=== PATIENT | female | born 1970 | race Caucasian/White ===

== ENCOUNTER 2016-09-12 18:36 | Emergency (ER) | payer BC ==
[2016-09-12] MEDS ORDERED: METHYLPREDNISOLONE PF 125MG/VIAL IVP ONE (19:21)
--- NOTE | 2016-09-12 19:27 | Emergency Department Record ---
History of Present Illness - General Chief complaint: ENT Stated complaint: SWELLING IN THROAT Time Seen by Provider: 09/12/16 19:08 Source: Patient Mode of Arrival: Ambulatory Limitations: No limitations - History of Present Illness Initial comments: pt has been having swelling in her r neck w difficulty swallowing all day. there is pain in the right anterior neck. she states initially it felt like a ' cramp' it has waxed and waned in intensity and and food seems to make it worse. MD complaint: Other Onset/Timin -: Hour(s) Location: Tongue Severity scale (1-10): 10 Quality: Sharp Consistency: Constant Improves with: Rest Worsens with: Eating, Swallowing Associated Symptoms: Pain with swallowing - Related Data Home Medications Medication Instructions Recorded Confirmed Last Taken Naproxen [Naprosyn] 500 mg PO BID 09/12/16 09/12/16 09/12/16 Naratriptan HCl [Amerge] 2.5 mg PO ASDIR 09/12/16 09/12/16 Unknown Sertraline HCl [Zoloft] 25 mg PO DAILY 09/12/16 09/12/16 09/12/16 Topiramate 100Mg Tablet 50 mg PO QD 09/12/16 09/12/16 09/12/16 [Topiramate] Previous Rx's Medication Instructions Recorded Levofloxacin [Levaquin] 500 mg PO DAILY #10 tablet 09/12/16 Allergies Allergy/AdvReac Type Severity Reaction Status Date / Time ceftriaxone [From Rocephin] Allergy ANAPHYLAXIS Verified 09/12/16 18:48 Penicillins Allergy ANAPHYLAXIS Verified 09/12/16 18:48 red dye Allergy ANAPHYLAXIS Verified 09/12/16 18:48 sulfamethoxazole Allergy SWELLING Verified 09/12/16 18:59 [From Bactrim] (GENERAL) trimethoprim [From Bactrim] Allergy SWELLING Verified 09/12/16 18:59 (GENERAL) Travel Screening - Travel/Exposure Within Last 30 Days Have you traveled within the last 30 days?: No - Travel/Exposure Within Last Year Have you traveled outside the [place] in the last year?: No - Additonal Travel Details Have you been exposed to anyone with a communicable illness?: No - Travel Symptoms Symptom Screening: None Review of Systems Reviewed: No additional complaints except as noted below Constitutional: Reports: As per HPI. Denies: Chills, Fever, Malaise, Night sweats, Weakness, Weight change Eyes: Reports: As per HPI. Denies: Eye discharge, Eye pain, Photophobia, Vision change ENT: Reports: As per HPI. Denies: Congestion, Dental pain, Ear pain, Epistaxis , Hearing loss, Throat pain Respiratory: Reports: As per HPI. Denies: Cough, Dyspnea, Hemoptysis, Stridor, Wheezes Cardiovascular: Reports: As per HPI. Denies: Arrhythmia, Chest pain, Dyspnea on exertion, Edema, Murmurs, Orthopnea, Palpitations, Paroxysmal nocturnal dyspnea, Rheumatic Fever, Syncope Endocrine: Reports: As per HPI. Denies: Fatigue, Heat or cold intolerance, Polydipsia, Polyuria Gastrointestinal: Reports: As per HPI. Denies: Abdominal pain, Constipation, Diarrhea, Hematemesis, Hematochezia, Melena, Nausea, Vomiting Genitourinary: Reports: As per HPI. Denies: Abnormal menses, Discharge, Dyspareunia, Dysuria, Frequency, Hematuria, Incontinence, Retention, Urgency Musculoskeletal: Reports: As per HPI. Denies: Arthralgia, Back pain, Gout, Joint swelling, Myalgia, Neck pain Skin: Reports: As per HPI. Denies: Bruising, Change in color, Change in hair/ nails, Lesions, Pruritus, Rash Neurological: Reports: As per HPI. Denies: Abnormal gait, Confusion, Headache, Numbness, Paresthesias, Seizure, Tingling, Tremors, Vertigo, Weakness Psychiatric: Reports: As per HPI. Denies: Anxiety, Auditory hallucinations, Depression, Homicidal thoughts, Suicidal thoughts, Visual hallucinations Hematological/Lymphatic: Reports: As per HPI. Denies: Anemia, Blood Clots, Easy bleeding, Easy bruising, Swollen glands Past Medical History - SOCIAL HISTORY Smoking Status: Never smoker Alcohol Use: None Drug Use: None - RESPIRATORY Hx Respiratory Disorders: Yes Hx Asthma: Yes - CARDIOVASCULAR Hx Cardio Disorders: Yes Hx Deep Vein Thrombosis: Yes Comment:: PAC - NEURO Hx Neuro Disorders: Yes Hx Headaches: Yes - GI Hx GI Disorders: No - Hx Genitourinary Disorders: No - ENDOCRINE Hx Endocrine Disorders: No - MUSCULOSKELETAL Hx Musculoskeletal Disorders: Yes Hx Arthritis: Yes - PSYCH Hx Psych Problems: Yes Hx Anxiety: Yes - HEMATOLOGY/ONCOLOGY Hx Hematology/Oncology Disorders: No Family Medical History Any Significant Family History?: No Family Hx Comment (NOT TO BE USED IN PLACE OF ITEMS BELOW): Mom thyroid Hx Depression: Mother Hx Resp Disorders: Father Hx Stroke: Father Physical Exam - General General Appearance: Alert, Oriented x3, Cooperative, Mild distress - Head Head exam: Normal inspection - Eye Eye exam: Normal appearance, PERRL, EOMI Pupils: Normal accommodation - ENT ENT exam: Normal exam, Mucous membranes moist, Normal external ear exam, Normal orophraynx, TM's normal bilaterally Ear exam: Normal external inspection. negative: External canal tenderness Nasal Exam: Normal inspection. negative: Discharge, Sinus tenderness Mouth exam: Normal external inspection, Tongue normal Teeth exam: Normal inspection. negative: Dental caries Throat exam: Normal inspection. negative: Tonsillar erythema, Tonsillar exudate - Neck Neck exam: Full ROM, Tenderness - Respiratory Respiratory exam: Normal lung sounds bilaterally. negative: Respiratory distress - Cardiovascular Cardiovascular Exam: Regular rate, Normal rhythm, Normal heart sounds - GI/Abdominal GI/Abdominal exam: Soft, Normal bowel sounds. negative: Tenderness - Rectal Rectal exam: Deferred - exam: Deferred - Extremities Extremities exam: Normal inspection, Full ROM, Normal capillary refill. negative: Tenderness - Back Back exam: Reports: Normal inspection, Full ROM. Denies: Muscle spasm, Rash noted, Tenderness - Neurological Neurological exam: Alert, CN II-XII intact, Normal gait, Oriented X3 - Psychiatric Psychiatric exam: Normal affect, Normal mood - Skin Skin exam: Dry, Intact, Normal color, Warm Course Vital Signs 09/12/16 18:39 Temperature 98.3 F Pulse Rate 83 Respiratory 20 Rate Blood Pressure 141/93 Pulse Ox 99 - Reevaluation(s) Reevaluation #1: 09/12/16 21:21 pt has done well. [address] read as enlarged submandibular gland, lymphadenitis, sinusitis and thyroid nodule Medical Decision Making - Lab Data Result diagrams: 09/12/16 19:41 09/12/16 19:41 Disposition Disposition: Discharge Clinical Impression: Lymphadenitis, Thyroid nodule Disposition: Home, Self-Care Condition: (1) Good Instructions: Sinusitis (ED), Adenitis (ED), Lymphadenopathy (ED), Thyroid Nodules (ED) Additional Instructions: follow up with family doctor. return sooner if worse. have further evaluation by ent if symptoms continue. have thyroid nodule evaluated further Prescriptions: Levofloxacin [Levaquin] 500 mg PO DAILY #10 tablet Forms: Patient Portal Access Quality - Quality Measures Quality Measures: Adult Sinusitis - Adult Sinusitis: CT Use Quality Measure: Measure #333: Adult Sinusitis Adult Sinusitis: CT for Acute Sinusitis: CT Ordered With Documented Reason [ G9348] Reason for Ordering CT: Other (ct ordered of neck for obstruction, sinusitis found incidentally) - Blood Pressure Screening Blood Pressure Classification: Hypertensive Reading Systolic Measurement: 141 Diastolic Measurement: 93 Screening for High Blood Pressure: < First Hypertensive BP, F/U Documented > [ G8950] First Hypertensive Follow-up Interventions: Follow-up with rescreen GT 1 day and LT 4 weeks.
[2016-09-12 19:50] LABS: BASO % 0.5 % (0-6); EOS % 2.5 % (0-6); GRAN % 45.7 % (47-80); HEMATOCRIT 37.5 % (35.0-47.0); HEMOGLOBIN 12.5 gm/dl (11.6-16.0); LYMPH % 42.9 % (16-45); MEAN CELL VOLUME 91.5 fl (81-97); MEAN CORPUSCULAR HEMOGLOBIN 30.5 pg (27-33); MEAN CORPUSCULAR HGB CONC 33.3 g/dl (32-36); MEAN PLATELET VOLUME 9.8 fl (7.4-10.4); MONO % 8.4 % (0-9); PLATELET COUNT 232 K/uL (130-400); RED CELL DISTRIBUTION WIDTH 13.3 % (11.5-14.5); WHITE BLOOD COUNT W/O DIFF 7.6 K/uL (4.2-12.2)
[2016-09-12 20:00] LABS: ANION GAP 10.3 (7-16); BLOOD UREA NITROGEN 22 mg/dL (7-17); CARBON DIOXIDE 24.7 mmol/L (22-30); CREATININE 0.9 mg/dL (0.52-1.04); EST GLOMERULAR FILTRATION RATE > 60 ml/min; GLUCOSE,RANDOM 82 mg/dL (70-110)
[2016-09-12 20:45] LABS: ERYTHROCYTE SEDIMENTATION RATE 7 mm/hr (0-20)
[2016-09-12] MEDS ORDERED: LEVOFLOXACIN 500 MG TABLET PO ONE (21:30)
--- NOTE | 2016-09-13 09:48 | CT SCAN REPORT ---
EXAM: CT OF THE NECK WITH CONTRAST HISTORY: RIGHT SIDE OF NECK SORE, SWELLING. TECHNIQUE: Axial CT scan of the neck was performed following the intravenous administration of 100 ml of Omnipaque 300 as the IV contrast. Small metallic BB 's were placed along the right side of the neck at the area the patient describes as being the area of pain and swelling. Comparison: None. FINDINGS: There is moderate opacification in the right maxillary sinus probably with an air fluid level. Some membrane thickening inferiorly in the sphenoid sinus. Elsewhere the visualized paranasal sinuses appear essentially clear. The visualized mastoids and middle ear cavities are clear aside from a single mastoid air cell posterolaterally on the right. The visualized orbits appear unremarkable. No parotid gland mass identified. No discreet submandibular gland mass seen on either side, but the right submandibular gland appears larger than the left with slight blurring of the tissue surrounding the right submandibular gland and clinical correlation as to right salivary gland infection suggested. There are some mildly prominent cervical nodes although no definite adenopathy identified. The right submandibular gland is in the region of the area of clinical concern as indicated by the BB's. There is a very small nodule in the left lobe of the thyroid only about 5 mm in size, and probably a small nodule along the posterior aspect of the right lobe of the thyroid about 7 mm in size. These are nonspecific although presumably small adenomas. The visualized lung apices appear clear. No apical pneumothorax evident. Degenerative change at the odontoid-anterior arch of C1 articulation and some narrowing of the fifth and sixth cervical interspaces with hypertrophic spurring. No prevertebral soft tissue swelling evident. The epiglottis is of normal size. No distention of the hypopharynx or narrowing of the subglottic airway evident. IMPRESSION: 1. ASYMMETRY IN THE SUBMANDIBULAR GLANDS WITH THE RIGHT APPEARING SOMEWHAT LARGER THAN THE LEFT AND ALSO WITH SLIGHT BLURRING OF THE PERIGLANDULAR ADIPOSE TISSUE SURROUNDING THE RIGHT SUBMANDIBULAR GLAND. CLINICAL CORRELATION TO INFECTION INVOLVING THE RIGHT SUBMANDIBULAR GLAND SUGGESTED. NO DISCREET ABSCESS IDENTIFIED. SOME MILDLY PROMINENT CERVICAL NODES, BUT NO SOILA ADENOPATHY EVIDENT. 2. AIR FLUID LEVEL RIGHT MAXILLARY SINUS AND SOME MEMBRANE THICKENING IN THE SPHENOID SINUS. 3. SINGLE SUBCENTIMETER THYROID NODULES BILATERALLY. 4. SOME DEGENERATIVE CHANGE IN THE CERVICAL SPINE. JOB NUMBER: [id number] [facility]
== END 2016-09-12 21:48 | disposition home or self-care (01) ==
LOC: ER 18:36
DX: K11.1 Hypertrophy of salivary gland (principal); E04.1 Nontoxic single thyroid nodule; I88.9 Nonspecific lymphadenitis, unspecified; J01.00 Acute maxillary sinusitis, unspecified
CPT/HCPCS: 99284 ×2; 96374; 85025; 85651; 80048; 87880; 84443; 70491; Q9967; J2930

== ENCOUNTER 2017-02-23 11:21 | Emergency (ER) | payer BC ==
[2017-02-23] MEDS ORDERED: ACETAMINOPHEN 500 MG TABLET PO ONE (12:09)
--- NOTE | 2017-02-23 12:11 | Emergency Department Record ---
History of Present Illness - General Chief Complaint: Cough Stated Complaint: ROBIN Time Seen by Provider: 02/23/17 11:58 Source: Patient Mode of Arrival: Ambulatory Limitations: No limitations - History of Present Illness Initial Comments: 46 yo female presents with cough, congestion, headaches, muscle aches and fatigue. She had had low grade fevers. She has vomited with coughing. No diarrhea. No rash. She reports low grade fevers. She did not have the influenza vaccine this year. MD Complaint: Cough, Fever, Nasal congestion Onset/Timin -: Days(s) Severity: Moderate Quality: Aching Consistency: Constant Improves With: Other (Rest) Worsens With: Other (coughing and activity) Associated Symptoms: Cough, Fever, Headache, Hoarseness, Myalgias, Nasal congestion, Nausea, Rhinorrhea, Sore throat, Vomiting (with cough) Treatments Prior to Arrival: Acetaminophen, Ibuprofen - Related Data Home Medications Medication Instructions Recorded Confirmed Last Taken Rivaroxaban [Xarelto] 25 mg PO QHS 02/23/17 02/23/17 02/22/17 Previous Rx's Medication Instructions Recorded Oseltamivir Phosphate [Tamiflu] 75 mg PO BID #10 capsule 02/23/17 Allergies Allergy/AdvReac Type Severity Reaction Status Date / Time ceftriaxone [From Rocephin] Allergy ANAPHYLAXIS Verified 02/23/17 12:00 Penicillins Allergy ANAPHYLAXIS Verified 02/23/17 12:00 red dye Allergy ANAPHYLAXIS Verified 02/23/17 12:00 sulfamethoxazole Allergy SWELLING Verified 02/23/17 12:00 [From Bactrim] (GENERAL) trimethoprim [From Bactrim] Allergy SWELLING Verified 02/23/17 12:00 (GENERAL) Travel Screening - Travel/Exposure Within Last 30 Days Have you traveled within the last 30 days?: No - Travel/Exposure Within Last Year Have you traveled outside the [place] in the last year?: No - Additonal Travel Details Have you been exposed to anyone with a communicable illness?: No - Travel Symptoms Symptom Screening: None Review of Systems Constitutional: Reports: Chills, Fever, Malaise Eyes: Denies: Eye discharge, Eye pain, Photophobia, Vision change ENT: Reports: Congestion Respiratory: Reports: Cough, Dyspnea. Denies: Hemoptysis, Stridor, Wheezes Cardiovascular: Denies: Chest pain, Palpitations, Syncope Endocrine: Reports: Fatigue. Denies: Polydipsia, Polyuria Gastrointestinal: Reports: Vomiting (with cough). Denies: Abdominal pain, Diarrhea Genitourinary: Denies: Dysuria, Urgency Musculoskeletal: Reports: Myalgia. Denies: Arthralgia, Joint swelling Skin: Denies: Bruising, Change in color, Rash Neurological: Reports: Headache. Denies: Confusion, Numbness, Seizure, Tremors , Vertigo, Weakness Psychiatric: Denies: Anxiety Hematological/Lymphatic: Denies: Blood Clots, Easy bleeding, Easy bruising, Swollen glands Past Medical History - SOCIAL HISTORY Smoking Status: Never smoker Alcohol Use: None Drug Use: None - RESPIRATORY Hx Respiratory Disorders: Yes Hx Asthma: Yes - CARDIOVASCULAR Hx Cardio Disorders: Yes Hx Deep Vein Thrombosis: Yes Comment:: PAC - NEURO Hx Neuro Disorders: Yes Hx Headaches: Yes - GI Hx GI Disorders: No - Hx Genitourinary Disorders: No - ENDOCRINE Hx Endocrine Disorders: No - MUSCULOSKELETAL Hx Musculoskeletal Disorders: Yes Hx Arthritis: Yes - PSYCH Hx Psych Problems: Yes Hx Anxiety: Yes - HEMATOLOGY/ONCOLOGY Hx Hematology/Oncology Disorders: No Family Medical History Any Significant Family History?: Yes Family Hx Comment (NOT TO BE USED IN PLACE OF ITEMS BELOW): Mom thyroid Hx Depression: Mother Hx Resp Disorders: Father Hx Stroke: Father Physical Exam - General General Appearance: Alert, Oriented x3, Cooperative, No acute distress Limitations: No limitations - Head Head exam: Normal inspection - Eye Eye exam: Normal appearance. negative: Conjunctival injection, Periorbital swelling, Scleral icterus - ENT ENT exam: Normal exam, Mucous membranes moist, Normal orophraynx Ear exam: Normal external inspection Nasal Exam: Discharge (clear). negative: Normal inspection Mouth exam: Normal external inspection Teeth exam: Normal inspection Throat exam: Normal inspection. negative: Tonsillar erythema, Tonsillomegaly, Tonsillar exudate, R peritonsillar mass, L peritonsillar mass - Neck Neck exam: Normal inspection, Full ROM. negative: Lymphadenopathy, Meningismus , Tenderness - Respiratory Respiratory exam: Normal lung sounds bilaterally. negative: Accessory muscle use, Decreased breath sounds, Rales, Respiratory distress, Rhonchi, Stridor, Wheezes - Cardiovascular Cardiovascular Exam: Regular rate, Normal rhythm, Normal heart sounds Peripheral Pulses: 2+: Radial (R), Radial (L) - GI/Abdominal GI/Abdominal exam: Soft. negative: Tenderness - Rectal Rectal exam: Deferred - exam: Deferred - Extremities Extremities exam: Normal inspection, Full ROM, Normal capillary refill. negative: Tenderness - Back Back exam: Reports: Normal inspection, Full ROM. Denies: Muscle spasm, Rash noted, Tenderness - Neurological Neurological exam: Alert, Normal gait, Oriented X3 - Psychiatric Psychiatric exam: Normal affect, Normal mood - Skin Skin exam: Dry, Intact, Normal color, Warm Course Vital Signs 02/23/17 12:02 Temperature 100.4 F H Pulse Rate 111 H Respiratory 20 Rate Blood Pressure 110/73 Pulse Ox 100 - Reevaluation(s) Reevaluation #1: The patient is Influenza A positive 02/23/17 12:39 Disposition Disposition: Discharge Clinical Impression: Influenza A Disposition: Home, Self-Care Condition: (1) Good Instructions: Influenza (ED) Additional Instructions: Rest and stay well hydrated You are very contagious to others Prescriptions: Oseltamivir Phosphate [Tamiflu] 75 mg PO BID #10 capsule Forms: Patient Portal Access Time of Disposition: 12:39 Quality - Quality Measures Quality Measures: N/A - Blood Pressure Screening Does Patient Have Any of the Following: No Blood Pressure Classification: Normal BP Reading Systolic Measurement: 110 Diastolic Measurement: 73 Screening for High Blood Pressure: < Normal BP, F/U Not Required > [G8783]
[2017-02-23 12:33] LABS: INFLUENZA A POSITIVE (NEGATIVE); INFLUENZA B NEGATIVE (NEGATIVE)
[2017-02-23] MEDS ORDERED: OSTELTAMIVIR 75 MG CAP PO ONE (12:35)
[2017-02-23] MEDS ORDERED: KETOROLAC 30 MG/ML VIAL IM ONE (12:42)
--- NOTE | 2017-02-24 09:38 | RADIOLOGY REPORT ---
EXAM: CHEST, TWO VIEWS HISTORY: COUGH, CONGESTION AND FEVER FOR FOUR DAYS. TECHNIQUE: PA and lateral views of the chest were obtained. Comparison: None. FINDINGS: The heart size is normal. No acute infiltrate identified. No pleural effusion or pneumothorax evident. Mild spurring in the spine. Surgical clips right upper quadrant of the abdomen presumably from cholecystectomy. IMPRESSION: 1. MILD SPURRING IN THE SPINE. 2. NO ACUTE INFILTRATE IDENTIFIED. JOB NUMBER: [id number] [facility]TDD
== END 2017-02-23 13:40 | disposition home or self-care (01) ==
LOC: ER 11:21
DX: J10.1 Influenza due to other identified influenza virus with other respiratory manifestations (principal); R06.00 Dyspnea, unspecified; R50.81 Fever presenting with conditions classified elsewhere
CPT/HCPCS: 99283; 96372; 99284; 87400; 71020; J1885; 71046

== ENCOUNTER 2018-05-28 03:01 | Emergency (ER) | payer BC, MEDICAID ==
[2018-05-28] MEDS ORDERED: KETOROLAC 30 MG/ML VIAL IVP ONE (03:18)
--- NOTE | 2018-05-28 03:27 | Emergency Department Record ---
History of Present Illness - General Chief complaint: Lower Extremity Pain Stated complaint: LEG CRAMPS Time Seen by Provider: 05/28/18 03:14 Source: Patient Mode of Arrival: Ambulatory Limitations: No limitations - History of Present Illness Initial comments: pt states she woke up with severe leg cramps. she has had these before and they would get better w potassium and magnesium and calcium. she took magnesium and calcium tonight but she is out of potassium. her cramps have improved but her legs are still very sore Complaint: Extremity pain Onset/Timin -: Minutes(s) Location: Bilateral History of Same: Yes Radiation: Distal Severity scale (1-10): 4 Quality: Aching Consistency: Constant Improves with: Medication, Rest Worsens with: Exertion, Walking Associated Symptoms: Denies other symptoms - Related Data Allergies Allergy/AdvReac Type Severity Reaction Status Date / Time ceftriaxone [From Rocephin] Allergy ANAPHYLAXIS Verified 02/23/17 12:00 Penicillins Allergy ANAPHYLAXIS Verified 02/23/17 12:00 red dye Allergy ANAPHYLAXIS Verified 02/23/17 12:00 sulfamethoxazole Allergy SWELLING Verified 02/23/17 12:00 [From Bactrim] (GENERAL) trimethoprim [From Bactrim] Allergy SWELLING Verified 02/23/17 12:00 (GENERAL) Travel Screening - Travel/Exposure Within Last 30 Days Have you traveled within the last 30 days?: No - Travel Symptoms Symptom Screening: None Review of Systems Reviewed: No additional complaints except as noted below Constitutional: Reports: As per HPI. Denies: Chills, Fever, Malaise, Night sweats, Weakness, Weight change Eyes: Reports: As per HPI. Denies: Eye discharge, Eye pain, Photophobia, Vision change ENT: Reports: As per HPI. Denies: Congestion, Dental pain, Ear pain, Epistaxis , Hearing loss, Throat pain Respiratory: Reports: As per HPI. Denies: Cough, Dyspnea, Hemoptysis, Stridor, Wheezes Cardiovascular: Reports: As per HPI. Denies: Arrhythmia, Chest pain, Dyspnea on exertion, Edema, Murmurs, Orthopnea, Palpitations, Paroxysmal nocturnal dyspnea, Rheumatic Fever, Syncope Endocrine: Reports: As per HPI. Denies: Fatigue, Heat or cold intolerance, Polydipsia, Polyuria Gastrointestinal: Reports: As per HPI. Denies: Abdominal pain, Constipation, Diarrhea, Hematemesis, Hematochezia, Melena, Nausea, Vomiting Genitourinary: Reports: As per HPI. Denies: Abnormal menses, Discharge, Dyspareunia, Dysuria, Frequency, Hematuria, Incontinence, Retention, Urgency Musculoskeletal: Reports: As per HPI. Denies: Arthralgia, Back pain, Gout, Joint swelling, Myalgia, Neck pain Skin: Reports: As per HPI. Denies: Bruising, Change in color, Change in hair/ nails, Lesions, Pruritus, Rash Neurological: Reports: As per HPI. Denies: Abnormal gait, Confusion, Headache, Numbness, Paresthesias, Seizure, Tingling, Tremors, Vertigo, Weakness Psychiatric: Reports: As per HPI. Denies: Anxiety, Auditory hallucinations, Depression, Homicidal thoughts, Suicidal thoughts, Visual hallucinations Hematological/Lymphatic: Reports: As per HPI. Denies: Anemia, Blood Clots, Easy bleeding, Easy bruising, Swollen glands Past Medical History - SOCIAL HISTORY Smoking Status: Never smoker Alcohol Use: None Drug Use: None - RESPIRATORY Hx Respiratory Disorders: Yes Hx Asthma: Yes - CARDIOVASCULAR Hx Cardio Disorders: Yes Hx Deep Vein Thrombosis: Yes Comment:: PAC - NEURO Hx Neuro Disorders: Yes Hx Headaches: Yes - GI Hx GI Disorders: No - Hx Genitourinary Disorders: No - ENDOCRINE Hx Endocrine Disorders: No - MUSCULOSKELETAL Hx Musculoskeletal Disorders: Yes Hx Arthritis: Yes - PSYCH Hx Psych Problems: Yes Hx Anxiety: Yes - HEMATOLOGY/ONCOLOGY Hx Hematology/Oncology Disorders: No Family Medical History Any Significant Family History?: Yes Family Hx Comment (NOT TO BE USED IN PLACE OF ITEMS BELOW): Mom thyroid Hx Depression: Mother Hx Resp Disorders: Father Hx Stroke: Father Physical Exam - General General Appearance: Alert, Oriented x3, Cooperative, No acute distress - Head Head exam: Normal inspection - Eye Eye exam: Normal appearance, PERRL, EOMI Pupils: Normal accommodation - ENT ENT exam: Normal exam, Mucous membranes moist, Normal external ear exam, Normal orophraynx Ear exam: Normal external inspection. negative: External canal tenderness Nasal Exam: Normal inspection. negative: Discharge, Sinus tenderness Mouth exam: Normal external inspection, Tongue normal Teeth exam: Normal inspection. negative: Dental caries Throat exam: Normal inspection. negative: Tonsillar erythema, Tonsillar exudate - Neck Neck exam: Normal inspection, Full ROM. negative: Tenderness - Respiratory Respiratory exam: Normal lung sounds bilaterally. negative: Respiratory distress - Cardiovascular Cardiovascular Exam: Regular rate, Normal rhythm, Normal heart sounds - GI/Abdominal GI/Abdominal exam: Soft, Normal bowel sounds. negative: Tenderness - Rectal Rectal exam: Deferred - exam: Deferred - Extremities Extremities exam: Normal inspection, Full ROM, Normal capillary refill. negative: Tenderness - Back Back exam: Reports: Normal inspection, Full ROM. Denies: Muscle spasm, Rash noted, Tenderness - Neurological Neurological exam: Alert, CN II-XII intact, Normal gait, Oriented X3 - Psychiatric Psychiatric exam: Normal affect, Normal mood - Skin Skin exam: Dry, Intact, Normal color, Warm Course Vital Signs 05/28/18 03:08 Temperature 97.9 F Pulse Rate [ 59 L Left] Respiratory 16 Rate Blood Pressure 122/81 [Left Arm] Pulse Ox 100 - Reevaluation(s) Reevaluation #1: 05/28/18 03:53 pt feels better Medical Decision Making - Lab Data Result diagrams: 05/28/18 03:23 05/28/18 03:23 Disposition Disposition: Discharge Clinical Impression: Leg cramps Disposition: Home, Self-Care Condition: (1) Good Instructions: Leg Cramps (ED) Additional Instructions: follow up with family doctor. return sooner if worse. take a norco when you get home if needed Forms: Patient Portal Access Quality - Quality Measures Quality Measures: N/A - Blood Pressure Screening Does Patient Have Any of the Following: No Blood Pressure Classification: Pre-Hypertensive BP Reading Systolic Measurement: 122 Diastolic Measurement: 81 Screening for High Blood Pressure: < Pre-Hypertensive BP, F/U Documented > [ G8950] Pre-Hypertensive Follow-up Interventions: Follow-up with rescreen every year.
[2018-05-28 03:30] LABS: BASO % 0.7 % (0-6); GRAN % 43.8 % (47-80); HEMATOCRIT 38.3 % (35.0-47.0); HEMOGLOBIN 12.7 gm/dl (11.6-16.0); LYMPH % 42.4 % (16-45); MEAN CELL VOLUME 90.3 fl (81-97); MEAN CORPUSCULAR HGB CONC 33.2 g/dl (32-36); MEAN PLATELET VOLUME 10.2 fl (7.4-10.4); MONO % 10.1 % (0-9); PLATELET COUNT 237 K/uL (130-400); RED BLOOD COUNT 4.24 M/uL (3.80-5.40); WHITE BLOOD COUNT W/O DIFF 5.9 K/uL (4.2-12.2)
[2018-05-28 03:42] LABS: BLOOD UREA NITROGEN 25 mg/dL (6-20); CREATININE 0.7 mg/dL (0.5-0.9); EST GLOMERULAR FILTRATION RATE > 60 mL/min
[2018-05-28 03:45] LABS: GLUCOSE,RANDOM 95 mg/dL (74-109)
[2018-05-28] MEDS ORDERED: HYDROCODONE/APAP 5/325MG TABLET PO ONE (03:52)
== END 2018-05-28 04:05 | disposition home or self-care (01) ==
LOC: ER 03:01
DX: R25.2 Cramp and spasm (principal)
CPT/HCPCS: 99284 ×2; 96374; 85025; 80048; J1885

== ENCOUNTER 2019-01-23 05:41 | Emergency (ER) | payer MEDICAID ==
--- NOTE | 2019-01-23 05:54 | Emergency Department Record ---
History of Present Illness - General Chief Complaint: Ankle/Foot Injury Stated Complaint: LEFT TOE INJURY Time Seen by Provider: 01/23/19 05:47 Source: Patient Mode of Arrival: Ambulatory Limitations: No limitations - History of Present Illness Initial Comments: 48 yo female presents after injuring her great toe yesterday around 7:30. She states she dropped a piece of plywood she was unloading onto the toe. She has local pain and swelling. No other injuries. The nail is intact. She is on Xarelto. She reports a prior history of DVT. MD Complaint: Foot injury -: Hour(s) Type of Injury: Blunt Place: Home Severity: Moderate Improves With: Immobilization Worsens With: Palpation, Weight bearing Context: Other (dropped plywood on the toe) Other Symptoms: Other Associated Symptoms: Able to partially bear weight Treatments Prior to Arrival: Other - Related Data Home Medications Medication Instructions Recorded Confirmed Last Taken Meloxicam 7.5 mg PO BID 01/23/19 01/23/19 Unknown Phentermine HCl [Adipex-P] 37.5 mg PO DAILY 01/23/19 01/23/19 Unknown Topiramate [Topamax] 50 mg PO DAILY 01/23/19 01/23/19 Unknown Previous Rx's Medication Instructions Recorded Cyclobenzaprine HCl [Flexeril] 10 mg PO TID #14 tablet 09/13/18 Allergies Allergy/AdvReac Type Severity Reaction Status Date / Time ceftriaxone [From Rocephin] Allergy ANAPHYLAXIS Verified 01/23/19 05:47 Penicillins Allergy ANAPHYLAXIS Verified 01/23/19 05:47 red dye Allergy ANAPHYLAXIS Verified 01/23/19 05:47 sulfamethoxazole Allergy SWELLING Verified 01/23/19 05:47 [From Bactrim] (GENERAL) trimethoprim [From Bactrim] Allergy SWELLING Verified 01/23/19 05:47 (GENERAL) Review of Systems Constitutional: Denies: Chills, Fever, Malaise, Weakness Eyes: Denies: Eye discharge ENT: Denies: Congestion, Throat pain Respiratory: Denies: Cough Cardiovascular: Denies: Chest pain Endocrine: Denies: Fatigue Gastrointestinal: Denies: Abdominal pain, Diarrhea, Nausea, Vomiting Genitourinary: Denies: Dysuria, Hematuria Musculoskeletal: Reports: As per HPI, Arthralgia, Joint swelling Skin: Reports: Bruising Neurological: Denies: Numbness, Tingling Psychiatric: Denies: Anxiety Hematological/Lymphatic: Denies: Easy bleeding, Easy bruising Past Medical History - SOCIAL HISTORY Smoking Status: Never smoker Drug Use: None - RESPIRATORY Hx Respiratory Disorders: Yes Hx Asthma: Yes - CARDIOVASCULAR Hx Cardio Disorders: Yes Hx Deep Vein Thrombosis: Yes Comment:: PAC - NEURO Hx Neuro Disorders: Yes Hx Headaches: Yes - GI Hx GI Disorders: No - Hx Genitourinary Disorders: No - ENDOCRINE Hx Endocrine Disorders: No - MUSCULOSKELETAL Hx Musculoskeletal Disorders: Yes Hx Arthritis: Yes - PSYCH Hx Psych Problems: Yes Hx Anxiety: Yes - HEMATOLOGY/ONCOLOGY Hx Hematology/Oncology Disorders: Yes 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; multiple DVT's) Family Medical History Family Hx Comment (NOT TO BE USED IN PLACE OF ITEMS BELOW): Mom thyroid Hx Depression: Mother Hx Resp Disorders: Father Hx Stroke: Father Physical Exam - General General Appearance: Alert, Oriented x3, Cooperative, No acute distress Limitations: No limitations - Head Head exam: Atraumatic, Normal inspection - Eye Eye exam: Normal appearance - ENT ENT exam: Normal exam Ear exam: Normal external inspection Nasal Exam: Normal inspection Mouth exam: Normal external inspection - Neck Neck exam: Normal inspection - Cardiovascular Peripheral Pulses: 2+: Dorsalis Pedis (L) - Extremities Extremities exam: Full ROM, Joint swelling, Normal capillary refill, Tenderness. negative: Normal inspection Image of Feet: 1 - mild great toe swelling, intact nail, intact skin, remainder of the foot is normal on inspection, intact skin, remaining toes are non tender - Neurological Neurological exam: Alert, Oriented X3 - Psychiatric Psychiatric exam: Normal affect, Normal mood - Skin Skin exam: Other (Bruised toe). negative: Cyanosis, Erythema, Mottled Course - Reevaluation(s) Reevaluation #1: 01/23/19 06:26 The XR of the foot were reviewed Small distal phalanx bone of the great toe demonstrates on one view a possible non displaced fracture No other acute abnormalities noted Disposition Disposition: Discharge Clinical Impression: Toe fracture, left Qualifiers: Encounter type: initial encounter Toe: great toe Fracture type: closed Phalanx: distal Fracture alignment: nondisplaced Qualified Code(s): S92.425A - Nondisplaced fracture of distal phalanx of left great toe, initial encounter for closed fracture Disposition: Home, Self-Care Condition: (1) Good Instructions: Toe Fracture (ED) Additional Instructions: Elevate the foot to minimize swelling Ice the foot 3 times daily to minimize swelling Use your walker for extra support until the pain is gone Off work today Forms: Patient Portal Access Time of Disposition: 06:32 Quality - Quality Measures Quality Measures: N/A - Blood Pressure Screening Does Patient Have Any of the Following: No Blood Pressure Classification: Pre-Hypertensive BP Reading Systolic Measurement: 123 Diastolic Measurement: 78 Screening for High Blood Pressure: < Pre-Hypertensive BP, F/U Documented > [G8950] Pre-Hypertensive Follow-up Interventions: Referral to alternative/primary care provider.
--- NOTE | 2019-01-23 06:28 | RADIOLOGY REPORT ---
EXAMINATION: Left Foot, Minimum Three Views EXAM DATE: 01/23/2019 6:20 AM TECHNIQUE: AP, lateral, and oblique INDICATION: foot injury, great toe, dropped plywood on it, pain near base of great toe COMPARISON: None ENCOUNTER: Initial FINDINGS: On the frontal view there is lucency through the lateral aspect of the base of the distal phalanx of the first digit extending to the articular surface proximally suspicious for nondisplaced fracture. H owever this is not visible on additional views, and there is no fracture visualized in the indicated area of point tenderness at the base of the proximal phalanx. Correlate clinically. Plantar calcaneal spur is seen. IMPRESSION: Findings suspicious for fracture at the base of the proximal phalanx of the first digit. Correlate cl inically. Dictated by: Che Bowden MD on 01/23/2019 6:22 AM. .
== END 2019-01-23 06:46 | disposition home or self-care (01) ==
LOC: ER 05:41
DX: S92.425A Nondisplaced fracture of distal phalanx of left great toe, initial encounter for closed fracture (principal); W22.8XXA Striking against or struck by other objects, initial encounter; Y92.009 Unspecified place in unspecified non-institutional (private) residence as the place of occurrence of the external cause; Z86.718 Personal history of other venous thrombosis and embolism
CPT/HCPCS: 99283

== ENCOUNTER 2019-02-04 09:47 | Day surgery (SDC) | payer MEDICAID ==
[2019-02-04] MEDS ORDERED: LIDOCAINE 2% MDV (20MG/ML) 20ML VIAL IV ONE (09:48)
[2019-02-04] MEDS ORDERED: FENTANYL PF 100MCG/2ML VIAL IV ONE (09:48)
[2019-02-04] MEDS ORDERED: PROPOFOL 10 MG/ML VIAL IV ONE (09:48)
--- NOTE | 2019-02-05 10:40 | Operative Note ---
OPERATION: ESOPHAGOGASTRODUODENOSCOPY with biopsy. PREOPERATIVE DIAGNOSIS: Dysphagia. POSTOPERATIVE DIAGNOSIS: Linear esophageal furrows and subtle ring formation suggestive of eosinophilic esophagitis, otherwise normal upper endoscopy. PROCEDURE: After informed consent was obtained from the patient, she was placed in the left lateral decubitus position in the endoscopy suite, sedated and monitored by the department of anesthesia. Once sedated, a well-lubricated [id number] gastroscope was placed in the posterior oropharynx under direct visualization and passed to the proximal esophagus. The endoscope was advanced through the proximal, mid, and distal esophagus. There were some very subtle linear furrows seen as well as some subtle rings. Photographs were taken. The gastric body, antrum, pylorus, duodenal bulb and sweep were unremarkable. J-turn views of the proximal stomach were unremarkable. The endoscope was straightened and retracted into the esophagus where random biopsies were obtained for histologic evaluation. No dilation was performed at this time out of consideration for possible EOE being noted. RECOMMENDATIONS: We will await results of tissue histology but plan to put the patient at twice per day PPI and repeat upper endoscopy in 8 weeks. This will be determined once tissue histology is available. As always, thank you for allowing me to participate in the healthcare of your patients. ЕЛЕНА
== END 2019-02-04 11:12 | disposition home or self-care (01) ==
LOC: HOP 09:47
PROVIDERS: ATTEND Internal Medicine Gastroenterology
DX: R13.10 Dysphagia, unspecified (principal); Z79.01 Long term (current) use of anticoagulants; J45.909 Unspecified asthma, uncomplicated; E66.9 Obesity, unspecified
CPT/HCPCS: 43239; 00731; J3010

== ENCOUNTER 2019-04-01 08:33 | Day surgery (SDC) | payer MEDICAID ==
[2019-04-01] MEDS ORDERED: PROPOFOL 10 MG/ML VIAL IV ONE (08:34)
[2019-04-01] MEDS ORDERED: LIDOCAINE 2% MDV (20MG/ML) 20ML VIAL IV ONE (08:34)
--- NOTE | 2019-04-02 10:52 | Operative Note ---
OPERATION: ESOPHAGOGASTRODUODENOSCOPY with biopsy and CRE balloon dilation. PREOPERATIVE DIAGNOSIS: Dysphagia, history of suspected EOE. POSTOPERATIVE DIAGNOSES: 1. GE junction ring. 2. Rule out EOE. PROCEDURE: After informed consent was obtained from the patient, she was placed in the left lateral decubitus position in the endoscopy suite, sedated and monitored by the department of anesthesia. A well-lubricated [id number] gastroscope was placed in the posterior oropharynx under direct visualization and passed to the proximal esophagus. The endoscope was advanced through the proximal, mid, and distal esophagus. The GE junction demonstrated a large-caliber ring which was easily traversed. The remainder of the esophagus appeared essentially unremarkable. No obvious eosinophilic changes were noted. The gastric body, antrum, pylorus, duodenal bulb and sweep were unremarkable. J-turn views of the proximal stomach were unrevealing. The endoscope was straightened. The GE junction was subsequently dilated with a 15 and 16.5 mm balloon inflation. There was no wasting noted. The balloon was then inflated to 18 mm. There was a superficial tear noted with adequate dilation. The balloon was deflated. No excessive bleeding was noted. There was a tear noted at the level of the ring. Random esophageal biopsies were also obtained. The endoscope was removed from the patient. RECOMMENDATIONS: I would suggest the patient continue her current medical program. We will await the results of tissue histology and her progress. As always, thank you for allowing me to participate in the healthcare of your patients. ЕЛЕНА
== END 2019-04-01 09:55 | disposition home or self-care (01) ==
LOC: HOP 08:33
PROVIDERS: ATTEND Internal Medicine Gastroenterology
DX: R13.10 Dysphagia, unspecified (principal); K22.8 Other specified diseases of esophagus; Z79.01 Long term (current) use of anticoagulants; J45.909 Unspecified asthma, uncomplicated; Z86.718 Personal history of other venous thrombosis and embolism
CPT/HCPCS: 43239; 43249; 00731; C1726